=== PATIENT | female | born 1975 | race Caucasian/White ===

== ENCOUNTER 2020-06-07 06:50 | Day surgery (SDC) | payer MEDICAID ==
[2020-06-04 15:46] LABS: HEMATOCRIT 41.3 % (36.0-48.0); MCH 30.6 pg (26.0-34.0); MCHC 33.9 g/dL (31.0-37.0); MCV 90.4 fL (80.0-100.0); MEAN PLATELET VOLUME 9.2 fL (7.4-10.4); RBC 4.57 10x6/uL (4.00-5.40); RDW 13.1 % (11.5-14.5); WBC 6.8 10x3/uL (4.8-10.8)
[~2020-06-07] VITALS: Ht 170.2 cm; Wt 62.1 kg
[~2020-06-07 06:50] MED LIST: KLONOPIN0.5 MG PO; MULTI-DAY VITAM1 TAB PO; NORCO 7.5-3251 EACH GT; TALTZ; VALTREX500 MG PO
[2020-06-07 08:21] LABS: HCG URINE NEGATIVE (NEGATIVE)
[2020-06-07 08:22] VITALS: BP 130/83; Ht 170.2 cm; Wt 62.1 kg
--- NOTE | 2020-06-07 14:08 | NUR ---
PATIENT DENIES PAIN AT THIS TIME.
--- NOTE | 2020-06-07 16:05 | NUR ---
1520 PT IS RESPONDING TO IBUPROFEN GIVEN EARLIER. PAIN LEVEL IS DOWN TO A 3 OUT OF 10 FROM A 6 OUT OF 10. IV DC'D. CATHETER TIP INTACT. NO BLEEDING AT SITE. BANDAID APPLIED. 1530 DISCHARGE INSTRUCTIONS REVIEWED. PT VOICES UNDERSTANDING OF INSTRUCTIONS.
--- NOTE | 2020-06-07 16:09 | NUR ---
1535 PT VOIDED A SECOND TIME. SMALL AMOUNT OF VAGINAL BLEEDING NOTED. PT IS AWARE THAT THIS IS NORMAL BUT TO NOTIFY DOCTOR IF BLEEDING IS HEAVY OR PASSING CLOTS.
--- NOTE | 2020-06-10 22:45 | OP ---
PATIENT NAME: ARY SAMSON MEDICAL RECORD: [id number] :71 LOCATION:[facility] ADMISSION DATE: SURGEON: NAPOLEON YUNG DO DATE OF OPERATION: 06/07/2020 PREOPERATIVE DIAGNOSES: Menorrhagia, cervical dysplasia, high-grade squamous intraepithelial lesion. POSTOPERATIVE DIAGNOSES: Menorrhagia, cervical dysplasia, high-grade squamous intraepithelial lesion. PRIMARY SURGEON: Napoleon Yung DO ANESTHESIA: Via LMA. PROCEDURE: Hysteroscopy, NovaSure ablation and LEEP. FINDINGS: Hysteroscopy demonstrated bilateral ostia were visualized. No fibroids noted within the endometrial cavity. General findings; friable cervix and for NovaSure ablation, length 6.0 cm with 2.5 cm, time 1 minute and 8 seconds. SPECIMENS: Ectocervix and endocervix. ESTIMATED BLOOD LOSS: Less than 20 cc. IV FLUIDS: Per anesthesia. URINE OUTPUT: 600 cc clear yellow urine via red rubber. INFECTION PROPHYLAXIS: Vaginal Betadine prep. COMPLICATIONS: None. DESCRIPTION OF PROCEDURE: Consent signed prior to procedure. All questions answered, after which the patient was taken to the operating room and LMA was administered without difficulty. The patient was then placed in dorsal lithotomy position with hari stirrups and prepped and draped in a normal sterile fashion. Bimanual exam revealed mobile anteverted uterus. Drury speculum was placed in the vagina. Anterior lip of the cervix was grasped with a single tooth tenaculum and brought forward. Cervix was dilated with Hegar dilators. Hysteroscope utilized to look within the uterine cavity and no fibroids noticed. A polypoid type tissue noted. Ostia was visualized. Hysteroscope was then removed and SureSound tool used to measure cavity lenght, which was 6 cm. The Hegar dilators were used to dilate cervix to 8 mm. The NovaSure device was then opened and tested and the fan deployed easily. Settings were set to the correct cavity length, and introduced into the uterine cavity. The fan was slowly deployed with gentle movements to ensure a snug fit within the cavity. The cavity width was 2.5cm. The initial cavity check did not allow procedure to continue. Measurements tried again and after this failed cavity check, new novasure used. Measurements were re-recorded and again the same, this time tenaculum was utilized to assist with grasoping cervix to form a tight seal with OPERATIVE REPORT [id number] ARY SAMSON NovSara device. After this maneuver, cavity check was adequate to proceed with procedure. Total burn time was 1 minute and 8 seconds and power was 83 smith. The fan was then retracted and the device removed. The fan examined and revealed charred tissue. After this, bivalve speculum removed and an insulated speculum placed with air suction. Large loop was used to excise the ectocervical portion and a small used to excise the endocervical portion. Rollerball was used to achieve hemostasis and Lugol solution applied. From double tenaculum site, a small 1 cm laceration on the anterior lip of cervix with hemostasis noted at the end of the procedure rollerball used to assure complete hemostasis as well. Speculum was removed. The patient tolerated the procedure well and was taken to the recovery room in stable condition. At the end of procedure, all lap, sponge, and instrument counts were correct times 2. TRANSINT:[id number] Voice Confirmation ID: [id number] DOCUMENT ID: [id number] NAPOLEON YUNG DO at 2245 CC: [id number] DICTATION DATE: 06/08/20 0859 CONTRACTS ATTORNEY: 06/08/20 1203 [facility] 06/07/20 [id number] [place] [id number]
== END 2020-06-07 15:45 | disposition home or self-care (01) ==
LOC: D.OPS 06:50
PROVIDERS: Anesthesiology; ATTEND Obstetrics & Gynecology
DX: N92.0 Excessive and frequent menstruation with regular cycle (principal); N87.9 Dysplasia of cervix uteri, unspecified; Z87.42 Personal history of other diseases of the female genital tract; D09.9 Carcinoma in situ, unspecified